=== PATIENT | female | born 1945 | race Caucasian/White ===

== ENCOUNTER 2020-06-14 01:41 | Emergency (ER) | payer MEDICARE, BC ==
[~2020-06-14 01:41] MED LIST: NORCO 5-325 TA1 EACH PO; ZOFRAN4 MG PO
[2020-06-14] MEDS ORDERED: VIBRAMYCIN 100100 MG GT (03:34)
[2020-06-14 03:39] LABS: HEMOGLOBIN 13.2 gm/dl (12.3-15.3); RED BLOOD COUNT 4.13 M/UL (4.00-5.10); WHITE BLOOD COUNT 5.1 K/UL (4.5-11.0)
[2020-06-14 03:51] LABS: BUN/CREATININE RATIO 37 (0-10)
== END 2020-06-14 03:42 | disposition home or self-care (01) ==
LOC: ER1 01:41
PROVIDERS: Family Medicine
DX: L03.113 Cellulitis of right upper limb (principal); L03.211 Cellulitis of face; W57.XXXA Bitten or stung by nonvenomous insect and other nonvenomous arthropods, initial encounter
CPT/HCPCS: 80053; 85025; 87040; 87070; 87205; 99283

== ENCOUNTER → 2021-03-27 | Outpatient (CLI) | payer MEDICARE, BC ==
[~2021-03-27] MED LIST changes: +VIBRAMYCIN 100100 MG GT
== END ==
LOC: EXRD 09:28
DX: R10.9 Unspecified abdominal pain (principal)
CPT/HCPCS: 74018